=== PATIENT | male | born 1995 | race Caucasian/White ===

== ENCOUNTER 2018-12-22 20:45 | Emergency (ER) | payer SELFPAY ==
[~2018-12-22] VITALS: Ht 172.7 cm; Wt 88.6 kg
[2018-12-22 20:52] VITALS: BP 137/64; TEMP 100.3
[2018-12-22] MEDS ORDERED: ZITHROMAX Z PA250 MG PO (21:21)
[2018-12-22 21:29] VITALS: PULSE 113
== END 2018-12-22 21:30 | disposition home or self-care (01) ==
LOC: COL.ER 20:45
DX: H73.012 Bullous myringitis, left ear (principal); F17.210 Nicotine dependence, cigarettes, uncomplicated; Z90.49 Acquired absence of other specified parts of digestive tract

== ENCOUNTER 2019-05-21 13:27 | Emergency (ER) | payer BC ==
[~2019-05-21] VITALS: Ht 172.7 cm; Wt 97.3 kg
[~2019-05-21 13:27] MED LIST: ZITHROMAX Z PA250 MG PO
[2019-05-21 13:40] VITALS: BP 123/69; TEMP 98.8
[2019-05-21] MEDS ORDERED: FLEXERIL 1010 MG/TAB PO (15:43)
[2019-05-21 16:29] VITALS: PULSE 91
== END 2019-05-21 16:30 | disposition home or self-care (01) ==
LOC: COL.ER 13:27
DX: S16.1XXA Strain of muscle, fascia and tendon at neck level, initial encounter (principal); F17.210 Nicotine dependence, cigarettes, uncomplicated; Z90.49 Acquired absence of other specified parts of digestive tract; Z88.2 Allergy status to sulfonamides; X50.0XXA Overexertion from strenuous movement or load, initial encounter; Y92.69 Other specified industrial and construction area as the place of occurrence of the external cause; Y99.0 Civilian activity done for income or pay
CPT/HCPCS: J1885

== ENCOUNTER 2019-08-14 00:40 | Emergency (ER) | payer BC ==
[~2019-08-14] VITALS: Ht 175.3 cm; Wt 95.9 kg
[~2019-08-14 00:40] MED LIST changes: +FLEXERIL 1010 MG/TAB PO
[2019-08-14 00:46] VITALS: BP 123/60; TEMP 97.8
[2019-08-14 01:27] VITALS: PULSE 87
== END 2019-08-14 01:27 | disposition home or self-care (01) ==
LOC: COL.ER 00:40
DX: K12.0 Recurrent oral aphthae (principal)